=== PATIENT | female | born 1955 | race African-American/Black ===

== ENCOUNTER → 2024-05-24 09:55 | Outpatient (REF) | payer MEDICARE, OTHER, SELFPAY | LOC: HWWDC 09:55 | PROVIDERS: ATTENDING PHYSICIAN Nurse Practitioner | DX: Z12.31 Encounter for screening mammogram for malignant neoplasm of breast (principal) | CPT/HCPCS: 77063; 77067 ==

== ENCOUNTER → 2025-05-25 08:49 | Outpatient (REF) | payer MEDICARE, OTHER, SELFPAY | LOC: HWRAD 08:49 | PROVIDERS: ATTENDING PHYSICIAN Internal Medicine | DX: Z78.0 Asymptomatic menopausal state (principal); Z12.31 Encounter for screening mammogram for malignant neoplasm of breast | CPT/HCPCS: 77063; 77067; 77080 ==

== ENCOUNTER 2025-06-08 12:13 | Outpatient (RCR) | payer MEDICARE, OTHER, SELFPAY | END 2025-06-08 23:59 | disposition home or self-care (01) | LOC: RPT 12:13 | PROVIDERS: ATTENDING PHYSICIAN Internal Medicine | DX: I89.0 Lymphedema, not elsewhere classified (principal); L90.5 Scar conditions and fibrosis of skin; N39.41 Urge incontinence; R29.3 Abnormal posture; R53.0 Neoplastic (malignant) related fatigue; Z73.6 Limitation of activities due to disability; M62.81 Muscle weakness (generalized); Z85.3 Personal history of malignant neoplasm of breast | CPT/HCPCS: 97163; 97530 ==

== ENCOUNTER 2025-06-24 10:18 | Outpatient (RCR) | payer MEDICARE, OTHER, SELFPAY | END 2025-06-24 23:59 | disposition home or self-care (01) | LOC: RPT 10:18 | PROVIDERS: ATTENDING PHYSICIAN Internal Medicine | DX: I89.0 Lymphedema, not elsewhere classified (principal); L90.5 Scar conditions and fibrosis of skin; N39.41 Urge incontinence; R29.3 Abnormal posture; R53.0 Neoplastic (malignant) related fatigue; Z73.6 Limitation of activities due to disability; M62.81 Muscle weakness (generalized); Z85.3 Personal history of malignant neoplasm of breast | CPT/HCPCS: 97110; 97140 ==

== ENCOUNTER 2025-08-12 09:23 | Outpatient (RCR) | payer MEDICARE, OTHER, SELFPAY | END 2025-08-12 23:59 | disposition home or self-care (01) | LOC: RPT 09:23 | PROVIDERS: ATTENDING PHYSICIAN Internal Medicine | DX: I89.0 Lymphedema, not elsewhere classified (principal); L90.5 Scar conditions and fibrosis of skin; N39.41 Urge incontinence; R29.3 Abnormal posture; R53.0 Neoplastic (malignant) related fatigue; Z73.6 Limitation of activities due to disability; M62.81 Muscle weakness (generalized); Z85.3 Personal history of malignant neoplasm of breast | CPT/HCPCS: 97110; 97140; 97530 ==

== ENCOUNTER 2025-09-09 06:53 | Outpatient (RCR) | payer MEDICARE, OTHER, SELFPAY | END 2025-09-09 23:59 | disposition home or self-care (01) | LOC: RPT 06:53 | PROVIDERS: ATTENDING PHYSICIAN Internal Medicine | DX: I89.0 Lymphedema, not elsewhere classified (principal); L90.5 Scar conditions and fibrosis of skin; N39.41 Urge incontinence; R29.3 Abnormal posture; R53.0 Neoplastic (malignant) related fatigue; Z73.6 Limitation of activities due to disability; M62.81 Muscle weakness (generalized); Z85.3 Personal history of malignant neoplasm of breast | CPT/HCPCS: 97110; 97140 ==